=== PATIENT | male | born 1970 | race Caucasian/White ===

== ENCOUNTER 2023-07-23 23:33 | Emergency (ER) | payer OTHER, SELFPAY ==
[2023-07-23 23:33] VITALS: BP 171/111; PULSE 88; RESP 16; TEMP 36.6; O2SAT 92; BMI 40.2
--- NOTE | 2023-07-23 23:40 | EDS_ITS ---
HPI History of Present Illness Chief Complaint: ETOH Intox Informant: patient Narrative Narrative: 53-year-old patient arrives by EMS because he accidentally drank too much at his son's wedding tonight, and was found by some family awake next to his car covered in vomit from the night's meal. At this time the patient states that other than feeling sick to his stomach he just feels drunk and is feeling really guilty about ruining my son's wedding. PFSH PFS Medical History (Updated 07/24/23 @ 03:[address] Live Durán MD) Hypothyroid Medical History unable to obtain unable to obtain Allergy/AdvReac Type Severity Reaction Status Date / Time No Known Allergies Allergy Verified 07/23/23 23:51 Social History Smoking Status: Never smoker ROS ROS ED Review of Systems ROS Unobtainable: other Details: Limited due to gross intoxication Eyes Eyes: Reports blurry vision bilateral Cardiovascular Cardiovascular: Denies chest pain Respiratory/Chest Respiratory/Chest: Denies dyspnea Gastrointestinal Gastrointestinal: Reports nausea and vomiting; Denies abdominal pain Musculoskeletal Musculoskeletal: Denies back pain or neck pain Neurologic Neurologic: Denies headache(s) Psychiatric Psychiatric: Denies suicidal thoughts EXAM Physical Exam Const Vital Signs: 07/23/23 23:33 07/24/23 00:00 07/24/23 00:08 Temperature 98 F Temperature Source Temporal Pulse Rate 88 Respiratory Rate 16 Blood Pressure 171/111 H Blood Pressure Mean 131 Blood Pressure Source Blood Pressure Position Blood Pressure Location Pulse Ox 92 77 Oxygen Delivery Method Room Air Room Air Nasal Cannula Oxygen Flow Rate (L/min) 2 07/24/23 01:00 07/24/23 01:30 07/24/23 02:00 Temperature 97.1 F L Temperature Source Temporal Pulse Rate 80 78 69 Respiratory Rate 18 20 H 16 Blood Pressure 174/100 H 100/80 124/66 H Blood Pressure Mean 124 86 85 Blood Pressure Source Monitor Blood Pressure Position Semi-Fowlers Blood Pressure Location Left Forearm Pulse Ox 90 93 92 Oxygen Delivery Method Room Air Room Air Room Air Oxygen Flow Rate (L/min) 07/24/23 03:06 07/24/23 04:37 07/24/23 05:00 Temperature Temperature Source Pulse Rate 75 86 84 Respiratory Rate 20 H 18 17 Blood Pressure 138/88 H 148/83 H 151/89 H Blood Pressure Mean 104 104 109 Blood Pressure Source Blood Pressure Position Blood Pressure Location Pulse Ox 94 95 95 Oxygen Delivery Method Room Air Room Air Room Air Oxygen Flow Rate (L/min) 07/24/23 05:31 Temperature 98.1 F Temperature Source Pulse Rate 70 Respiratory Rate 17 Blood Pressure 150/88 H Blood Pressure Mean 108 Blood Pressure Source Blood Pressure Position Blood Pressure Location Pulse Ox 94 Oxygen Delivery Method Oxygen Flow Rate (L/min) Positive well nourished and well developed Constitutional Narrative: Emesis bag in hand, patient has food from recent meal vomited all over his chest and in the emesis bag, is grossly intoxicated and in no distress. No coffee- ground emesis or hematemesis. General Appearance ED: well developed and NAD HEENT Reports moist mucous membranes HEENT Narrative: Airway intact no stridor normocephalic and atraumatic Eyes PERRL and EOMs intact bilaterally Eyes Narrative: Horizontal nystagmus Neck full ROM and supple Chest Wall inspection of chest normal and palpation of chest normal Resp normal respiratory effort and clear to auscultation bilaterally Cardio regular rate, regular rhythm and no murmurs GI non-tender and non-distended Auscultation: normoactive bowel sounds Palpation: soft Back/Spine no CVA tenderness General Back: other FROM Extremity normal to inspection General Extremety ED: Negative for edema, pulses abnormal or tenderness General Extremity: Negative for edema or pulses abnormal Neuro oriented x3, CN's II-XII intact bilaterally and no sensory deficits noted Sensorium / Orientation: awake and alert Motor Exam: strength 5/5 throughout Psych Psych Narrative: Grossly intoxicated Mood & Affect: tearful Skin no rashes or lesions noted and no wounds MDM MDM MDM Narrative Medical decision making narrative: Obtain the patient's alcohol level while we placed an IV, give him a liter of fluid along with 4 mg of Zofran IV. It is 248, enough to be intoxicated but not dangerous in and of itself. During his care here, while lethargic and vomiting, he dropped his oxygen saturations, although he did not feel dyspneic. He then came back up, nurses put him on a 2 L nasal cannula he slept comfortably without more hypoxemia. I obtained an 1 view chest x-ray to evaluate for possible radiographic findings of aspiration, on my interpretation it is negative and radiology was in agreement. came and I spoke with her. She states he was so drunk that he was lying on the ground and no one could get him up, he was covered in vomit and so they felt like they had no choice but to call EMS. At this point it is 2-3 AM and he is sleeping heavily, on the monitor and 2 L of oxygen not hypoxic and doing well. I advised her that it would be reasonable for her to go home and let him rest here under observation until the morning when he is more alert/awake and a little less intoxicated at which point then we will reevaluate him and try to get him home. Therefore patient admitted to ED observation at 0320. Patient was observed until all 5:30 AM, at that time doing well ambulatory, acting more sober, tolerating oral fluids taking him home. Lab Data Attestation: I reviewed the patient's lab results. Labs: Laboratory Results - last 24 hr 07/23/23 00:10 Ethyl Alcohol 248.0 Radiography Diagnostic Testing: Clinical Impression(s) from Imaging Studies Chest X-Ray 07/24/23 00:30 IMPRESSION: No acute pulmonary finding. Electronically Signed: Wilbert Daugherty MD at 0:47 EDT , Discharge Plan Triage Chief Complaint: ETOH Intox ED Provider: Live Durán Dx/Rx/DC Orders Clinical Impression: Alcohol intoxication with blood alcohol level 0.08-0.29, Vomiting Instructions: ED Alcohol Intoxication Primary Care Provider: Care Physician,No Primary Referrals: [facility] Doctor,Out of [Non-Staff] - As Needed Print Language: Argentine Disposition Disposition: Home, Self Care Discharge Date/Time: 07/24/23 05:33
[2023-07-24] VITALS (8 sets, daily range): BP systolic 100–174; BP diastolic 66–100; PULSE 69–86; RESP 16–20; TEMP 36.2–36.7; O2SAT 77–95
[2023-07-24] MEDS: Ondansetron 4 MG/2 ML Vial IV (00:09)
[2023-07-24] MEDS: 0.9% Normal Saline (1000mL) 1,000 ML 999 ML IV (00:09)
--- NOTE | 2023-07-24 00:30 | RAD_ITS ---
INDICATION: vomiting, hypoxic EXAMINATION/TECHNIQUE: X-RAY - XR Chest 1 View COMPARISON: No relevant prior comparison study available FINDINGS: LINES/DEVICES: None. LUNGS: The lungs are well expanded. No consolidation, edema or effusion. No pneumothorax. MEDIASTINUM AND CARDIOVASCULAR STRUCTURES: Cardiac silhouette not enlarged. Central airways and mediastinal contour are unremarkable. BONES AND SOFT TISSUES: No acute abnormality. RAD/Chest 1 View (Portable) IMPRESSION: No acute pulmonary finding. Electronically Signed: Wilbert Daugherty MD at 0:47 EDT ,
== END 2023-07-24 05:33 | disposition home or self-care (01) ==
PROVIDERS: Emergency Provider Emergency Medicine; Visit Provider Emergency Medicine
DX: F10.129 Alcohol abuse with intoxication, unspecified (principal); R11.10 Vomiting, unspecified; Y90.8 Blood alcohol level of 240 mg/100 ml or more
CPT/HCPCS: 71045; 80320; 99284; J7030; G0480; J2405